=== PATIENT | female | born 1975 | race Caucasian/White ===

== ENCOUNTER 2018-03-12 18:23 | Emergency (ER) | payer OTHER, MEDICAID ==
[~2018-03-12] VITALS: Ht 167.6 cm; Wt 64.9 kg
[2018-03-12 18:28] VITALS: Ht 167.6 cm; Wt 64.9 kg
[2018-03-12 19:54] VITALS: BP 130/69
== END 2018-03-12 19:54 | disposition home or self-care (01) ==
LOC: ED 18:23
DX: G89.29 Other chronic pain (principal); M54.5 Low back pain; M54.6 Pain in thoracic spine; R03.0 Elevated blood-pressure reading, without diagnosis of hypertension

== ENCOUNTER 2018-04-17 18:05 | Emergency (ER) | payer SELFPAY ==
[~2018-04-17] VITALS: Ht 157.5 cm; Wt 65.3 kg
[2018-04-17 18:17] VITALS: Ht 157.5 cm; Wt 65.3 kg
[2018-04-17 20:32] VITALS: BP 134/79
== END 2018-04-17 20:32 | disposition home or self-care (01) ==
LOC: ED 18:05
DX: G44.209 Tension-type headache, unspecified, not intractable (principal); M54.2 Cervicalgia
CPT/HCPCS: J1885; Q0162